=== PATIENT | female | born 1945 | race Caucasian/White ===

== ENCOUNTER 2021-03-10 17:52 | Emergency (ER) | payer BC, MEDICAID ==
[~2021-03-10] VITALS: Ht 162.6 cm; Wt 90.9 kg
[~2021-03-10 17:52] MED LIST: AMLO-101 PO; ASCO1CAP4; ESCI10TA PO; FOLI-64 PO; HYDR-4353 PO; IBUP-1984 PO; POLY17PO10 PO
[2021-03-10 18:15] VITALS: BP 163/61
[2021-03-10] MEDS ORDERED: ERYT1OIN6 EACHEYE (18:34)
[2021-03-10] MEDS ORDERED: erythromycin ophthalmic ointment 1gm tube EACHEYE ONE (18:35)
== END 2021-03-10 19:08 | disposition home or self-care (01) ==
LOC: ER 17:53
DX: H10.9 Unspecified conjunctivitis (principal); Z53.21 Procedure and treatment not carried out due to patient leaving prior to being seen by health care provider; Z88.1 Allergy status to other antibiotic agents; Z88.0 Allergy status to penicillin; Z79.2 Long term (current) use of antibiotics; Z79.899 Other long term (current) drug therapy
CPT/HCPCS: 99283

== ENCOUNTER 2023-11-04 14:09 | Emergency (ER) | payer BC, MEDICAID ==
[~2023-11-04] VITALS: Ht 157.5 cm; Wt 105.5 kg
[2023-11-04 15:58] VITALS: BP 140/82; PULSE 78; RESP 16; TEMP 98.4; O2SAT 98
== END 2023-11-04 15:59 | disposition home or self-care (01) ==
LOC: ER 14:10
DX: S90.31XA Contusion of right foot, initial encounter (principal); R60.0 Localized edema; Z88.0 Allergy status to penicillin; Z88.1 Allergy status to other antibiotic agents; W20.8XXA Other cause of strike by thrown, projected or falling object, initial encounter; Y93.89 Activity, other specified; Y92.89 Other specified places as the place of occurrence of the external cause; Y99.8 Other external cause status
CPT/HCPCS: 73610; 73630; 99284